=== PATIENT | female | born 2000 | race Caucasian/White ===

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

== ENCOUNTER 2018-12-11 20:52 | Emergency (ER) | payer MEDICAID ==
--- NOTE | 2018-12-11 22:46 | ED Physician Documentation ---
PD HPI OPHTHO - Stated complaint Stated Complaint: EYE INJ/BLURRY VISION - Chief complaint Chief Complaint: Heent - History obtained from History obtained from: Patient - History of Present Illness Timing - onset: Enter time (19:00), Today Timing - details: Abrupt onset Pain level now: 1 Location: Right Quality / character: Aching Associated symptoms: Decreased vision (initially blurry but improved and now just has small area of decreased vision "like when you stare at the sun" (per patient)). No: FB sensation, Loss of vision Recently seen: Not recently seen - Additional information Additional information: at approximately 7 PM, accidentally struck in right eye with a bottlecap Review of Systems Eyes: reports: Decreased vision. 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 : None HEENT: None Psych: Post traumatic stress disorder Musculoskeletal: None Derm: Eczema - Past Surgical History Past Surgical History: Yes Ortho: Spine surgery HEENT: Tonsil/Adenoidectomy - Present Medications Home Medications: Ambulatory Orders Medication Instructions Recorded Confirmed Albuterol [Ventolin Hfa] 2 puffs INH Q4H PRN #1 inhaler 03/07/13 11/10/14 Cyclobenzaprine [Flexeril] 10 mg PO TID PRN #20 tablet 11/10/14 predniSONE [Deltasone] 40 mg PO DAILY 5 Days tablet 11/10/14 - Allergies Allergies/Adverse Reactions: Allergies Allergy/AdvReac Type Severity Reaction Status Date / Time No Known Drug Allergies Allergy Verified 03/07/13 21:11 - Social History Does the pt smoke?: Yes Smoking Status: Current every day smoker Does the pt drink ETOH?: No Does the pt have substance abuse?: No - Immunizations Immunizations are current?: Yes - POLST Patient has POLST: No PD ED PE NORMAL - Vitals Vital signs reviewed: Yes - General General: Alert and oriented X 3, No acute distress, Well developed/nourished - HEENT HEENT: PERRL, EOMI PD ED PE EXPANDED - Eyes Eyes: Normal eyelids, Nl conjunctiva/sclera, Normal corneas, Anterior chambers clear, Other (retina as visualized with panophthalmoscope is without defect). No: Injected conj/sclera, Subconj hemorrhage, Fluorescein uptake, Hyphema, Ant chamber cells/flare Results - Vitals Vitals: Vital Signs - 24 hr 12/11/18 23:06 Temperature 36.9 C Heart Rate 93 Respiratory 18 Rate Blood Pressure 147/91 H O2 Saturation 99 Oxygen O2 Source Room air PD MEDICAL DECISION MAKING - ED course Complexity details: considered differential, d/w patient Departure - Departure Disposition: 01 Home, Self Care Clinical Impression: Eye injury Condition: Good Health Concerns: eye injury Plan of Treatment: return if worse, follow up with ophthalmology if symptoms persist Care Goals: resolution of symptoms Assessment: see diagnosis Instructions: ED Contusion Eye Forms: Activity restrictions Discharge Date/Time: 12/11/18 23:13
[2018-12-11] MEDS ORDERED: PROPARACAINE 0.5% OPHTH DROPS 15 ML RIGHTEYE STA (22:50)
[2018-12-11 23:07] VITALS: BP 147/91
== END 2018-12-11 23:13 | disposition home or self-care (01) ==
LOC: ED 20:52
DX: S05.91XA Unspecified injury of right eye and orbit, initial encounter (principal); W20.8XXA Other cause of strike by thrown, projected or falling object, initial encounter; F17.200 Nicotine dependence, unspecified, uncomplicated
CPT/HCPCS: 99282; 99283; J3490

== ENCOUNTER 2020-05-14 14:42 | Outpatient (CLI) | payer MEDICAID ==
[2020-05-14 20:33] LABS: HEMOGLOBIN A1c% 5.3 % (4.27-6.07)
== END 2020-05-14 14:43 | disposition home or self-care (01) ==
LOC: LAB.N 14:42
PROVIDERS: ATTEND Obstetrics & Gynecology
DX: N91.0 Primary amenorrhea (principal)
CPT/HCPCS: 36415; 83036

== ENCOUNTER 2021-07-26 08:00 | Outpatient (CLI) | payer MEDICAID | END 2021-07-26 23:59 | LOC: LAB.N 08:00 | PROVIDERS: ATTEND Physician Assistant | DX: N30.01 Acute cystitis with hematuria (principal) | CPT/HCPCS: 87086 ==

== ENCOUNTER 2021-12-26 22:55 | Emergency (ER) | payer OTHER, MEDICAID ==
--- NOTE | 2021-12-26 23:52 | ED Physician Documentation ---
History of Present Illness - Stated complaint Stated Complaint: R FOOT SWELLING - Chief complaint Chief Complaint: General - History obtained from History obtained from: Patient - Additonal information Additional information: Patient comes to the emergency department chief complaint of Right foot pain after a twisting injury. She States that the pain crosses her midfoot and then goes up into her lateral malleolus. Injury happened today. Patient states she has been able to bear weight but it just feels uncomfortable. No other complaints at this time. She did not feel a "pop" or "snap". Review of Systems Ten Systems: 10 systems reviewed and negative Constitutional: reports: Reviewed and negative Eyes: reports: Reviewed and negative Ears: reports: Reviewed and negative Nose: reports: Reviewed and negative Throat: reports: Reviewed and negative Cardiac: reports: Reviewed and negative Respiratory: reports: Reviewed and negative GI: reports: Reviewed and negative : reports: Reviewed and negative Skin: reports: Reviewed and negative Musculoskeletal: reports: Extremity pain, Joint pain, Pain with weight bearing Neurologic: reports: Reviewed and negative Psychiatric: reports: Reviewed and negative Endocrine: reports: Reviewed and negative Immunocompromised: reports: Reviewed and negative PD PAST MEDICAL HISTORY - Past Medical History Cardiovascular: None Respiratory: None Neuro: None Endocrine/Autoimmune: None GI: None 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 : None HEENT: None Psych: Post traumatic stress disorder Musculoskeletal: None Derm: Eczema - Past Surgical History Past Surgical History: Yes Ortho: Spine surgery HEENT: Tonsil/Adenoidectomy - Present Medications Home Medications: Ambulatory Orders Medication Instructions Recorded Confirmed Albuterol [Ventolin Hfa] 2 puffs INH Q4H PRN #1 inhaler 03/07/13 11/10/14 Cyclobenzaprine [Flexeril] 10 mg PO TID PRN #20 tablet 11/10/14 predniSONE [Deltasone] 40 mg PO DAILY 5 Days tablet 11/10/14 - Allergies Allergies/Adverse Reactions: Allergies Allergy/AdvReac Type Severity Reaction Status Date / Time No Known Drug Allergies Allergy Verified 12/26/21 23:03 - Social History Does the pt smoke?: Yes Smoking Status: Current every day smoker Does the pt drink ETOH?: No Does the pt have substance abuse?: No - Immunizations Immunizations are current?: Yes - POLST Patient has POLST: No PD ED PE NORMAL - Vitals Vital signs reviewed: Yes - General General: Alert and oriented X 3, No acute distress, Well developed/nourished - HEENT HEENT: Atraumatic, PERRL, EOMI, Moist mucous membranes - Neck Neck: Supple, no meningeal sign - Cardiac Cardiac: Strong equal pulses - Respiratory Respiratory: No respiratory distress - Derm Derm: Normal color, Warm and dry, No rash - Extremities Extremities: No deformity, Other (Mild edema and tenderness over dorsum of right foot) - Neuro Neuro: Alert and oriented X 3, [employer] leader 2-12 intact, No motor deficit, No sensory deficit, Normal speech - Psych Psych: Normal mood, Normal affect Results - Vitals Vitals: Vital Signs - 24 hr 12/26/21 12/27/21 23:00 00:01 Temperature 36.5 C 37.2 C Heart Rate 112 H 100 Respiratory 18 16 Rate Blood Pressure 152/99 H 144/103 H O2 Saturation 98 99 Oxygen O2 Source Room air - Rads (name of study) X-ray ankle Radiology: Final report received, EMP read indepedently, See rad report X-ray right foot Radiology: Final report received, EMP read indepedently, See rad report (Negative) PD MEDICAL DECISION MAKING - ED course Complexity details: reviewed results, re-evaluated patient, considered differential, d/w patient ED course: The patient's ankle and foot x-rays were negative. Patient requested an Hao wrap but declined to have crutches. Hao wrap was placed and we have discussed symptomatic management at home. We have discussed the usual indications for return. Departure - Departure Disposition: 01 Home, Self Care Clinical Impression: Right foot sprain Qualifiers: Encounter type: initial encounter Qualified Code(s): S93.601A - Unspecified sprain of right foot, initial encounter Condition: Stable Instructions: ED Sprain Foot Comments: Your x-rays look good overall. The final radiologist interpretation is pending and if any subtleties are detected, you will be notified. However, at this point in time, there is no evidence of any broken bones in the areas you are hurting or anywhere else in your foot or ankle. You may use ibuprofen if needed to help with the pain. Ice packs are also helpful and can be applied for 20 to 30 minutes at a time, several times a day. You may use the Hao wrap if needed to help provide some support for your foot as it heals. You may bear weight as tolerated. Please follow-up with your primary care physician as needed. Discharge Date/Time: 12/27/21 00:10
[2021-12-27 00:02] VITALS: BP 144/103
--- NOTE | 2021-12-27 01:14 | XRAY Report ---
PROCEDURE: Foot 3 View RT INDICATIONS: Injury/trauma TECHNIQUE: 3 views of the foot were acquired. COMPARISON: Concurrent study of the ankle. FINDINGS: Bones: No fractures or dislocations. No suspicious bony lesions. Soft tissues: No tibiotalar joint effusion. Achilles tendon appears normal. IMPRESSION: 1. No fracture or dislocation. Reviewed by: Yoan Garcia MD on 12/27/2021 1:12 AM PDT Approved by: Yoan Garcia MD on 12/27/2021 1:12 AM PDT Station ID: [id number]
--- NOTE | 2021-12-27 01:28 | XRAY Report ---
PROCEDURE: Ankle 3 View RT INDICATIONS: injury/trauma TECHNIQUE: 3 views of the ankle were acquired. COMPARISON: Concurrent study of the foot. FINDINGS: Bones: No fractures or dislocations. There is minimal tibiotalar joint degeneration anteriorly. Ank le mortise is normally aligned. No suspicious bony lesions. Soft tissues: No tibiotalar joint effusion. Achilles tendon appears normal. IMPRESSION: 1. No fracture or dislocation. Reviewed by: Yoan Garcia MD on 12/27/2021 1:26 AM PDT Approved by: Yoan Garcia MD on 12/27/2021 1:26 AM PDT Station ID: [id number]
== END 2021-12-27 00:10 | disposition home or self-care (01) ==
LOC: ED 22:55
DX: S93.601A Unspecified sprain of right foot, initial encounter (principal); X50.1XXA Overexertion from prolonged static or awkward postures, initial encounter; F17.200 Nicotine dependence, unspecified, uncomplicated
CPT/HCPCS: 99282; 99283